=== PATIENT | male | born 1985 | race Caucasian/White ===

== ENCOUNTER 2022-05-26 11:31 | Outpatient (CLI) | payer OTHER, SELFPAY | END 2022-05-26 11:32 | disposition home or self-care (01) | PROVIDERS: PCP Family Medicine; Visit Provider Family Medicine | DX: Z00.00 Encounter for general adult medical examination without abnormal findings (principal); R20.2 Paresthesia of skin; Z13.6 Encounter for screening for cardiovascular disorders; Z11.59 Encounter for screening for other viral diseases | CPT/HCPCS: 80053; 80061; 82607; 86803 ==

== ENCOUNTER 2023-03-26 09:06 | Outpatient (CLI) | payer OTHER, SELFPAY | END 2023-03-26 09:07 | disposition home or self-care (01) | PROVIDERS: PCP Family Medicine; Visit Provider Physician Assistant Medical | DX: Z00.00 Encounter for general adult medical examination without abnormal findings (principal); Z13.6 Encounter for screening for cardiovascular disorders | CPT/HCPCS: 80053; 80061 ==